=== PATIENT | female | born 1995 | race Caucasian/White ===

== ENCOUNTER 2018-11-14 16:31 | Observation (INO) ==
[2018-11-14 17:30] LABS: Amphetamine Screen,Urine Negative ng/mL (Cutoff=1000); Barbiturate Screen,Urine Negative ng/mL (Cutoff=200); Benzodiazepines Screen,Urine Negative ng/mL (Cutoff=200); Cannabinoid Screen,Urine Negative ng/mL (Cutoff = 50); Cocaine Screen,Urine Negative ng/mL (Cutoff= 300); Opiate Screen,Urine Negative ng/mL (Cutoff=300); Phencyclidine Screen,Urine Negative ng/mL (Cutoff=25)
--- NOTE | 2018-11-14 19:03 | Discharge Summary ---
Date of Encounter: 11/14/18 Time of Encounter: 19:03 - Discharge Diagnosis (1) 36 weeks gestation of Priority: Primary Status: Acute Comments: Admit to observation for possible fluid leakage and decreased movement (2) NST (non-stress test) reactive Priority: Secondary Status: Acute Comments: FHR 140 bpm, moderate variability, +15x15 accels, no decels. (3) Vaginal discharge during in third trimester Priority: Secondary Status: Acute Comments: Vaginosis panel collected, will treat as appropriate for any positive results. FERN negative (4) Decreased movement affecting management of in third trimester Priority: Secondary Status: Acute Comments: Patient arrived with complaint of decreased movement today, only felt 4 movements in one hour. Reactive FHR tracing while here, patient reports feeling positive movement. Qualifiers: Fetus number: single or unspecified fetus Qualified Code(s): O36.8130 - Decreased movements, third trimester, not applicable or unspecified - Discharge Medications Prescriptions: No Action Vit/FA 1 each PO DAILY Home Medications: Vit/FA 1 each PO DAILY 11/14/18 [History] Allergies/Adverse Reactions: Allergy/AdvReac Type Severity Reaction Status Date / Time Penicillins Allergy See Verified 01/03/18 19:22 Comments Data Procedures and tests throughout hospitalization: Laboratory Tests 11/14/18 16:48 Urine Opiates Screen Negative Ur Buprenorphine Scrn Negative Ur Barbiturates Screen Negative Ur Phencyclidine Scrn Negative Ur Amphetamines Screen Negative U Benzodiazepines Scrn Negative Urine Cocaine Screen Negative U Marijuana (THC) Screen Negative Ur Drug Screen Interp See Below Labs on day of discharge: Labs from last 24 hours 11/14/18 16:48 Urine Opiates Screen Negative Ur Buprenorphine Scrn Negative Ur Barbiturates Screen Negative Ur Phencyclidine Scrn Negative Ur Amphetamines Screen Negative U Benzodiazepines Scrn Negative Urine Cocaine Screen Negative U Marijuana (THC) Screen Negative Ur Drug Screen Interp See Below Date of admission: 11/14/18 16:31 Discharging clinician: Vero Rod Anticipated date of discharge: 11/14/18 - Patient Status Disposition: Home, Self-Care Condition: Good Functional capacity at discharge: independent ambulation Overall status at discharge: patient is progressing back to baseline - Discharge Instructions Follow Up With: Donta Carl MD [Partnered Physician] - - Diet and Activity Activity: resume usual activities as tolerated Diet: regular diet Hospital Course [employer] [facility] Hospital course: Patient arrived today with complaint of decreased movement today, only felt 4 movements in one hour prior to arrival. She denies painful uterine contractions and vaginal discharge. She had a reactive NST here and vaginosis panel returned negative for infection, and FERN was also negative. She is to return to her OB provider for routine care as scheduled. Time Attestation: Total time spent providing and/or coordinating discharge services: Time Spent: Less than 30 minutes Exam - Constitutional General appearance IM: A&O X 3, no acute distress - Respiratory Respiratory exam: Absent: respiratory distress - Rectal Rectal exam: deferred - Extremities Exam Extremities exam IM: Present: normal capillary refill, normal inspection. Absent: calf tenderness - Neurological Exam Neurological exam: alert, normal gait, oriented X3 - VTE Reasons for not Prescribing Prophylaxis: Treatment not Indicated - Low risk for VTE
[2018-11-14 19:28] LABS: Candida DNA Not Detected (Not Detect); Gardnerella DNA Not Detected (Not Detect); Trichomonas DNA Not Detected (Not Detect)
== END 2018-11-14 19:06 | disposition home or self-care (01) ==
LOC: 1NENULAB
PROVIDERS: ADMIT Obstetrics & Gynecology; ATTEND Obstetrics & Gynecology

== ENCOUNTER 2018-12-04 09:05 | Inpatient (IN) ==
[2018-12-04] MEDS ORDERED: FLU Vac QV 19-20 (6Month+)/PF 0.5 ML SYRINGE IM ONE (09:24)
[2018-12-04] MEDS ORDERED: Famotidine 20 MG/2 ML VIAL IVP PRN (09:33)
[2018-12-04] MEDS ORDERED: Naloxone 0.4 MG/ML INJ IVP PRN (09:33)
[2018-12-04] MEDS ORDERED: Ondansetron 4 MG/2 ML VIAL IVP PRN (09:33)
[2018-12-04] MEDS ORDERED: Metoclopramide 10 MG/2 ML VIAL IVP PRN (09:33)
[2018-12-04] MEDS ORDERED: *HR* Nalbuphine 10 MG/ML AMPUL IVP PRN (09:33)
[2018-12-04] MEDS ORDERED: Ringers Solution, Lactated 1,000 ML IVC SCH (09:45)
[2018-12-04 09:50] LABS: Basophils % 0.2 %; Eosinophils % 0.1 %; Hematocrit 34.6 % (35.3-44.9); Hemoglobin 11.2 g/dL (11.5-15.4); Immature Granulocytes % 0.5 % (0-4); Lymphocytes # 1.8 K/mcL (0.6-4.6); Lymphocytes % 11.7 %; Mean Corpuscular HGB Conc 32.4 g/dL (31.6-35.5); Mean Corpuscular Hemoglobin 26.3 pg (28.0-33.3); Mean Corpuscular Volume 81.2 fL (83.0-100.0); Mean Platelet Volume 11.8 fL (9.4-12.4); Monocytes # 0.8 K/mcL (0.0-1.3); Monocytes % 5.1 %; Neutrophils # 12.7 K/mcL (1.6-8.9); Platelet Count 202 K/mcL (140-400); Red Blood Count 4.26 M/mcL (3.82-4.97); Red Cell Distribution Width 13.7 % (11.5-14.5); Segmented Neutrophils % 82.4 %; White Blood Count 15.3 K/mcL (4.3-11.1)
[2018-12-04 10:23] LABS: Amphetamine Screen,Urine Negative ng/mL (Cutoff=1000); Barbiturate Screen,Urine Negative ng/mL (Cutoff=200); Benzodiazepines Screen,Urine Negative ng/mL (Cutoff=200); Cannabinoid Screen,Urine Negative ng/mL (Cutoff = 50); Cocaine Screen,Urine Negative ng/mL (Cutoff= 300); Opiate Screen,Urine Negative ng/mL (Cutoff=300); Phencyclidine Screen,Urine Negative ng/mL (Cutoff=25)
[2018-12-04] MEDS ORDERED: Ropivacaine/PF 0.2% 20 ML VIAL ONE (10:32)
[2018-12-04] MEDS ORDERED: *HR* FentaNYL (PF) 100 MCG/2 ML VIAL ONE (10:32)
[2018-12-04] MEDS ORDERED: Epidural Premix (fent/bupiv) 110 ML EP ONE (10:53)
[2018-12-04] MEDS ORDERED: EPHEDrine 50 MG/ML VIAL IVP PRN (11:14)
--- NOTE | 2018-12-04 11:14 | Anesthesia Evaluation PreOp ---
Date of Encounter: 12/04/18 Time of Encounter: 10:30 - Past History Planned Operation: toño Cardiac History: Denies any Significant Hx Pulmonary History: Denies Any Significant HX EXCAVATION LABORER History: Denies Any Significant HX Other Medical History: Denies Any Significant HX : Yes (G1, 39 weeks) Alcohol Use: none Drug use: none Medications and Allergies Vit/FA 1 each PO DAILY 11/14/18 [History] Allergy/AdvReac Type Severity Reaction Status Date / Time Penicillins Allergy See Verified 12/04/18 09:22 Comments - Meds/Allergy Pre-op Review Medications Reviewed: Yes Allergies Reviewed: Yes Beta Blockers on Current Med List: No Anesthesia Results - Labs 12/04/18 09:25 Anesthesia Exam O2 Sat Height 1.6 m Weight 80.1 kg Height: 63 Weight: 80 - HEENT Pupil (Motor): Pupils equal Mallampati: II Teeth: Normal Oral Opening: Greater than 3 - EXCAVATION LABORER LOC: Oriented EXCAVATION LABORER Motor: Normal RUE, Normal LUE, Normal RLE, Normal LLE, Normal Face EXCAVATION LABORER Sensory: Normal: RUE, LUE, RLE, LLE, Face - Cardiac Rhythm: Regular Murmur: None JVD: No Carotid Bruit: No - Pulmonary Breath Sounds: bilateral Clear Respiratory Effort: Symmetrical Anesthesia Assess/Plan ASA Score: 2 Level of consciousness: Cooperative Anesthetic Plan: Epidural Monitoring Plan: Standard Monitors
[2018-12-04] MEDS ORDERED: Epidural Premix (fent/bupiv) 110 ML EP SCH (11:15)
--- NOTE | 2018-12-04 11:17 | Anesthesia Procedures ---
Date of Encounter: 12/04/18 Time of Encounter: 10:30 (procedure endtime 1116) Procedures: Anesthesia - Epidural/Spinal Patient ID/Chart reviewed: Yes Patient examined: Yes OB Eval: Gestational age: 39 OB Eval: : 1 OB Eval: Contractions: Non-stressed pattern Consent Obtained: Yes Supplemental Oxygen: None/Room Air Site Prep: Aseptic Technique Patient position: upright Local Anesthetic: Lidocaine 1% Amount of Local Anesthetic used: 3 Touhy Needle Gauge: 18 Touhy Needle Depth (cm): 8 Catheter Depth at Skin (cm): 13 Test Dose (1.5% Lido + Epi): Volume given (mls): 3 Test Dose Result: Negative Loading Dose: Fentanyl (mcg): 100 Loading Dose: Other: 5cc 0.2% ropivicaine Loading Dose Administered: Thru Touhy Needle Infusion Med: 0.125% Bupivacaine w/ 2 mcg/ml Fentanyl Infusion Rate (mls/hr): [address]: Tegaderm Interspace Used: L3-L4 Loss of Resistance (NIYAH): Yes Blood: No CSF: No Paresthesia: No Procedure: Strict asepsis, good NIYAH with second pass of 1st attempt. Bolus thru needle, catheter to 13 and negative test dose. Gtt to 14cc/hr. FHR unchanged.
--- NOTE | 2018-12-04 12:43 | OB Labor Progress Note ---
Date of Encounter: 12/04/18 Time of Encounter: 12:41 Labor Progress Note - Subjective Subjective: Patient is tolerating labor well. States she has begun to shake - Vital Signs Vital Signs: VSS - Cervix Cervix: 9cm. Lip only on the right side./ 100% effaced / -1 - Heart Tones Heart Tones: 120 moderate variability with 15 x 15 accels and no decels - [place]: contractions every 3 to 4 minutes - Interventions Interventions: AROM for moderate amount of clear fluid - Plan Plan: Continue routine labor management Anticipate vaginal delivery POC per consult with Dr Carl
[2018-12-04] MEDS ORDERED: Lidocaine -MPF 1% 5 ML AMPUL ONE (14:57)
--- NOTE | 2018-12-04 17:08 | OB/GYN History & Physical ---
Date of Encounter: 12/04/18 Time of Encounter: 17:06 Assessment and Plan (1) 39 weeks gestation of Current visit: Yes Status: Acute 23-year-old 1 para 0 female at 39 weeks gestation presents for labor. On arrival she reports contractions every 5 minutes and she is having spotting. On arrival cervix is 6 was dilated 90% effaced and station which is a change from last office visit. Her pregnancies been otherwise uncomplicated. History of Present Illness Chief complaint: Labor HPI: Ms. Méndez is a 23 year old female female at 39weeks EGA presents with freq uc's and bloody show. Her cvx on arrival was 6cm dilated/90/-1 Past Med Surg Social Fam HX - Past Medical History Source: patient, old records reviewed Medical history: no medical history Psychiatric history: depression - Past Surgical History Surgical History: no surgical history - Social History Smoking Status: Former smoker Smokeless Tobacco Status: No Alcohol use: none Drug use: none - Family History Mother Living Status: Still Living Hx Family Cardiac Disorders: Yes (HTN) Obstetrical History - Pregnancies : 1 Medications and Allergies Vit/FA 1 each PO DAILY 11/14/18 [History] Allergy/AdvReac Type Severity Reaction Status Date / Time Penicillins Allergy See Verified 12/04/18 09:22 Comments Exam - Constitutional Constitutional: well developed, well nourished - HEENT HEENT: EOMI, PERRL - Neck Neck exam: full ROM - Lungs Respiratory exam: CTAB - Cardiovascular Cardiovascular exam: RRR - Extremities Extremities exam: full ROM Deep Tendon Reflex Grade: 2+ Normal - Cervix Dilation: 6 Effacement: 90 Station: -1 Results Result Diagrams: 12/04/18 09:25 Abnormal lab results WBC 15.3 K/mcL (4.3-11.1) H 12/04/18 09:25 Hgb 11.2 g/dL (11.5-15.4) L 12/04/18 09:25 Hct 34.6 % (35.3-44.9) L 12/04/18 09:25 MCV 81.2 fL (83.0-100.0) L 12/04/18 09:25 MCH 26.3 pg (28.0-33.3) L 12/04/18 09:25 Neutrophils # 12.7 K/mcL (1.6-8.9) H 12/04/18 09:25 All other labs normal. - VTE Reasons for not Prescribing Prophylaxis: Treatment not Indicated - Low risk for VTE
--- NOTE | 2018-12-04 17:15 | OB/GYN Procedure Note ---
Delivery - Delivery Date: 12/04/18 Provider: Donta Carl Intrapartum events: none Delivery augmentation: rupture of membranes Delivery monitor: external FHT Anesthesia: local, epidural Quantitated Blood Loss: 200 - Infant (s) Infant A Delivery Date: 12/04/18 Infant Delivery Time: 16:41 Presentation: vertex Position: MARY Gender: Female Viability: Viable at 1 minute: 8 at 5 mins: 9 Shoulder Dystocia: not encountered Specimens collected: cord blood Placenta: spontaneous Cord: 3 umbilical vessels - Repair Laceration Description: Perineal - 2nd Degree - Complications Delivery complications: none - Disposition Mom disposition: stable in LDR [place] disposition: stable in LDR - Comments Comments: Patient is status post normal spontaneous vaginal delivery of liveborn female infant with Apgars of 8 at 1 minute and 9 at 5 minutes. We had spontaneous delivery of a normal placenta with three-vessel cord. There was a second-degree laceration repaired with 3-0 Vicryl under local and epidural anesthesia. Estimated blood loss was 200 mL. There were no complications,no shoulder dystocia and no nuchal cord mother and infant recovered in labor and delivery room.
[2018-12-04] MEDS ORDERED: Lanolin 7 G OINT...G. TP PRN (18:41)
[2018-12-04] MEDS ORDERED: Acetaminophen 325 MG TABLET PO PRN (18:41)
[2018-12-04] MEDS ORDERED: Oxytocin 20 units/ LR 1000 mL 20 UNIT/1,000 ML BAG IVC SCH (18:41)
[2018-12-04] MEDS ORDERED: Benzocaine/Menthol 56 GM AEROSOL SPRAY TP PRN (18:41)
[2018-12-04] MEDS: Ibuprofen 600 MG TABLET PO PRN (19:11)
[2018-12-05] MEDS: Ibuprofen 600 MG TABLET PO PRN ×2 (06:22→14:07)
[2018-12-05 06:47] LABS: Basophils % 0.3 %; Eosinophils # 0.1 K/mcL (0.0-0.6); Eosinophils % 0.7 %; Hematocrit 27.7 % (35.3-44.9); Immature Granulocytes % 0.5 % (0-4); Lymphocytes # 1.9 K/mcL (0.6-4.6); Lymphocytes % 13.3 %; Mean Corpuscular HGB Conc 32.1 g/dL (31.6-35.5); Mean Corpuscular Hemoglobin 26.3 pg (28.0-33.3); Monocytes % 7.1 %; Neutrophils # 11.3 K/mcL (1.6-8.9); Platelet Count 172 K/mcL (140-400); Red Blood Count 3.38 M/mcL (3.82-4.97); Red Cell Distribution Width 13.8 % (11.5-14.5); Segmented Neutrophils % 78.1 %; White Blood Count 14.4 K/mcL (4.3-11.1)
[2018-12-05 06:49] LABS: Hemoglobin 8.9 g/dL (11.5-15.4)
--- NOTE | 2018-12-05 08:42 | Discharge Summary ---
Date of Encounter: 12/05/18 Time of Encounter: 08:40 - Discharge Diagnosis (1) Vaginal delivery Priority: Primary Status: Acute Comments: Continue routine care discharge home today follow up with Dr. Carl in 4-6 weeks (2) anemia Priority: Secondary Status: Acute Comments: increase ferrous sulfate to BID (3) Second degree perineal laceration during delivery Priority: Secondary Status: Acute Comments: continue pericare Continue colace po daily - Discharge Medications Prescriptions: New Docusate [Colace] 100 mg PO BID #60 capsule Benzocaine/Menthol [place] [Dermoplast [place]] 1 appl TP QID PRN aerosol PRN Reason: See Comments Ferrous Sulfate 325 mg PO BIDWM #60 tablet Ibuprofen [Motrin] 600 mg PO Q6HR PRN #60 tablet PRN Reason: Cramping Continued Vit/FA 1 each PO DAILY Home Medications: Vit/FA 1 each PO DAILY 11/14/18 [History] Benzocaine/Menthol [place] [Dermoplast [place]] 1 appl TP QID PRN aerosol 12/05/18 [Rx] Docusate [Colace] 100 mg PO BID #60 capsule 12/05/18 [Rx] Ferrous Sulfate 325 mg PO BIDWM #60 tablet 12/05/18 [Rx] Ibuprofen [Motrin] 600 mg PO Q6HR PRN #60 tablet 12/05/18 [Rx] Allergies/Adverse Reactions: Allergy/AdvReac Type Severity Reaction Status Date / Time Penicillins Allergy See Verified 12/04/18 09:22 Comments Data Procedures and tests throughout hospitalization: Laboratory Tests 12/04/18 12/04/18 12/05/18 09:25 09:58 06:11 WBC 15.3 H 14.4 H RBC 4.26 3.38 L Hgb 11.2 L 8.9 L D Hct 34.6 L 27.7 L MCV 81.2 L 82.0 L MCH 26.3 L 26.3 L MCHC 32.4 32.1 RDW 13.7 13.8 Plt Count 202 172 MPV 11.8 12.0 Immature Gran % 0.5 0.5 Seg Neutrophils % 82.4 78.1 Lymphocytes % 11.7 13.3 Monocytes % 5.1 7.1 Eosinophils % 0.1 0.7 Basophils % 0.2 0.3 Neutrophils # 12.7 H 11.3 H Lymphocytes # 1.8 1.9 Monocytes # 0.8 1.0 Eosinophils # 0.0 0.1 Basophils # 0.0 0.0 Urine Opiates Screen Negative Ur Buprenorphine Scrn Negative Ur Barbiturates Screen Negative Ur Phencyclidine Scrn Negative Ur Amphetamines Screen Negative U Benzodiazepines Scrn Negative Urine Cocaine Screen Negative U Marijuana (THC) Screen Negative Ur Drug Screen Interp See Below Labs on day of discharge: Labs from last 24 hours 12/05/18 12/04/18 12/04/18 06:11 09:58 09:25 WBC 14.4 H 15.3 H RBC 3.38 L 4.26 Hgb 8.9 L D 11.2 L Hct 27.7 L 34.6 L MCV 82.0 L 81.2 L MCH 26.3 L 26.3 L MCHC 32.1 32.4 RDW 13.8 13.7 Plt Count 172 202 MPV 12.0 11.8 Immature Gran % 0.5 0.5 Seg Neutrophils % 78.1 82.4 Lymphocytes % 13.3 11.7 Monocytes % 7.1 5.1 Eosinophils % 0.7 0.1 Basophils % 0.3 0.2 Neutrophils # 11.3 H 12.7 H Lymphocytes # 1.9 1.8 Monocytes # 1.0 0.8 Eosinophils # 0.1 0.0 Basophils # 0.0 0.0 Urine Opiates Screen Negative Ur Buprenorphine Scrn Negative Ur Barbiturates Screen Negative Ur Phencyclidine Scrn Negative Ur Amphetamines Screen Negative U Benzodiazepines Scrn Negative Urine Cocaine Screen Negative U Marijuana (THC) Screen Negative Ur Drug Screen Interp See Below Date of admission: 12/04/18 09:05 Primary care physician: Jose E Jack Consults: 12/04/18 18:41 Consult to [facility] Director [CONS] Routine Comment: Vaginal delivery, consult needed Discharging clinician: Allyn Parra Anticipated date of discharge: 12/05/18 - Patient Status Disposition: Home, Self-Care Condition: Good Functional capacity at discharge: independent ambulation - Discharge Instructions Follow Up With: Jose E Jack DO [Primary Care Provider] - Donta Carl MD [Partnered Physician] - - Diet and Activity Activity: increase activity as tolerated Diet: regular diet Hospital Course Reason for admission: active labor Delivery: Episiotomy: none Laceration: 2nd degree Other procedures: none complications: none Discharge diagnosis: IUP at term delivered [place] baby: female (bottle feeding) Time Attestation: Total time spent providing and/or coordinating discharge services: Time Spent: Less than 30 minutes Exam - Constitutional Vitals: Temp Pulse Resp BP Pulse Ox 98.2 F 98 16 119/68 98 12/05/18 07:50 12/05/18 07:50 12/05/18 07:50 12/05/18 07:50 12/05/18 04:30 General appearance IM: A&O X 3, pleasant, answers questions appropriately - Respiratory Respiratory exam: Present: CTAB - Cardiovascular Cardiovascular exam IM: Present: RRR, +S1, +S2 - GI/Abdominal GI/Abdominal exam IM: normal bowel sounds - Uterine Tone: Firm Uterus Position: At Umbilicus, Midline - Extremities Exam Extremities exam IM: Present: full ROM, normal capillary refill, normal inspection - Neurological Exam Neurological exam: alert, oriented X3, reflexes normal
[2018-12-05] MEDS ORDERED: Prenatal Vit/FA 1 EACH TABLET PO SCH (09:00)
[2018-12-05] MEDS ORDERED: FLU Vac QV 19-20 (6Month+)/PF 0.5 ML SYRINGE IM ONE (12:12)
[2018-12-05 16:08] VITALS: BP 105/78
== END 2018-12-05 18:41 | disposition home or self-care (01) | DRG 807 ==
LOC: 1NENULAB → OBSVTOIN 09:05 → 1NENUOBS 19:51
PROVIDERS: ADMIT Obstetrics & Gynecology; ATTEND Obstetrics & Gynecology